=== PATIENT | female | born 1935 | race Caucasian/White ===

== ENCOUNTER 2017-01-23 19:54 | Inpatient (IN) ==
[2017-01-23 20:25] LABS: Basophils % 0.5 % (0.0-0.8); Eosinophils # 0.3 10*3/uL (0.0-0.87); Eosinophils % 3.5 % (0.00-10.9); Hematocrit 36.7 VOL% (35.7-47.0); Hemoglobin 12.8 GM/DL (12.0-16.0); Immature Granulocytes % 0.1 %; Immature Granulocytes Absolute 0.01 #; Lymphocytes % 33.7 % (21.3-54.2); Mean Corpuscular HGB Conc 34.9 GM/DL (32-36); Mean Corpuscular Hemoglobin 31 PG (27-34); Mean Corpuscular Volume 87.6 FL (87-102); Mean Platelet Volume 9.9 FL (9.6-12.0); Monocytes # 0.9 10*3/uL (0.11-0.8); Monocytes % 10.6 % (1.7-12.7); Neutrophils # 4.5 10*3/uL (1.4-7.4); Neutrophils % 51.6 % (38.7-73.9); Platelet Count 255 T/CUMM (130-400); Red Blood Count 4.19 MC/CUMM (3.8-5.5); Red Cell Distribution Width 13.1 % (9.3-17.3); White Blood Count 8.8 T/CUMM (4-12)
--- NOTE | 2017-01-23 20:37 | XRay Report ---
XR chest 2V Indication: Chest pain. Chest 2 views: No comparison. Heart size is normal. Aorta slightly tortuous. Mediastinal contours unremarkable. Right hemidiaphragm is elevated. Lungs are clear. Pleural spaces are clear. Impression: No acute cardiopulmonary disease. PROCEDURE INTERPRETED AT [facility] DEPARTMENT OF RADIOLOGY Final Report Signed by: Mauro Leach M.D.
[2017-01-23 20:40] LABS: Blood Urea Nitrogen 15 MG/DL (7-18); Calcium 9.1 MG/DL (8.5-10.1); Glucose 106 MG/DL (74-106); Magnesium 2.1 MG/DL (1.8-2.4); Osmolality,Calculated 270.1 MOS/KG (273-304); Potassium 4.2 MMOL/L (3.5-5.1); Sodium 135 MMOL/L (136-145); Troponin I Only < 0.015 NG/ML (0.00-0.045)
--- NOTE | 2017-01-23 20:56 | Emergency Department Note ---
Kwabena Torres Hilary, am scribing for, and in the presence of, Mauricio Ponce MD 20:11 . Rosario Torres Hans, MD, personally performed the services described in this documentation, ascribed by Raven Yuan in my presence, and it is both accurate and complete . Arrival - Arrival Chief Complaint: Chest Pain Stated Complaint: Chest pain Limitations: No Limitations Source: Patient, RN Notes Reviewed - History of Present Illness HPI Narrative: Pt is a 72 y/o female brought into the ED via EMS with c/o chest which onset at 1430 today. She states that she had this about a week ago but not this bad. Pt confirms chest pain, SOB, left leg swelling intermittently and acid reflux but denies abdominal pain. No other complaints or problems stated in the ED. She was given 2 Nitros and 2 baby aspirins. Onset (ago): hour(s) Consistency: now resolved Allergies/Adverse Reactions: Allergies Allergy/AdvReac Type Severity Reaction Status Date / Time piroxicam [From Feldene] Allergy Unknown/Unable Verified 01/23/17 20:07 to obtain Home Medications: Home Medications Medication Instructions Recorded Confirmed Type Atorvastatin [Lipitor] 20 mg PO DAILY 01/23/17 01/23/17 History Omeprazole [Prilosec] 20 mg PO DAILY 01/23/17 01/23/17 History Oxybutynin Chloride 5 mg PO BID 01/23/17 01/23/17 History Review of System - Review of System 12 point system: reviewed and no additional remarkable complaints except as stated - Review of System Constitutional: Absent: fever Respiratory: Present: respiratory distress Cardiovascular: Present: chest pain Gastrointestinal: Absent: abdominal pain Exam Vital Signs: Vital Signs Temperature 98.0 F 01/23/17 19:55 Pulse Rate 68 01/23/17 20:46 Respiratory Rate 20 01/23/17 20:46 Blood Pressure 161/77 01/23/17 20:46 O2 Sat by Pulse Oximetry 95 01/23/17 20:46 - General General appearance: alert, in no apparent distress - Head Head exam: Present: atraumatic, normocephalic - Eye Eye exam: Present: normal appearance, PERRL, EOMI - ENT ENT exam: Present: mucous membranes moist, TM's normal bilaterally. Absent: mucous membranes dry - Neck Neck exam: Present: full ROM, trachea midline. Absent: tenderness - Chest Chest inspection: Present: symmetric chest wall rise. Absent: tenderness - Respiratory Respiratory exam: Present: normal lung sounds bilaterally. Absent: respiratory distress - Cardiovascular Cardiovascular exam: Present: regular rate, normal rhythm, normal heart sounds. Absent: murmur, rubs, gallop - Abdominal Exam Abdominal exam: Present: soft, normal bowel sounds. Absent: distention, tenderness - Extremities Exam Extremities exam: Present: full ROM. Absent: tenderness - Back Exam Back exam: Present: full ROM. Absent: tenderness - Neurological Exam Neurological exam: Present: alert, oriented X3, CN II-XII intact. Absent: motor sensory deficit - Psychiatric Psychiatric exam: Present: normal affect, normal mood - Skin Skin exam: Present: warm, dry, intact, normal color. Absent: rash Course Course Narrative: This patient was evaluated in the ER with lab work chest x-ray and EKG. She had some minimal ST depression in her septal leads but her troponin was negative and there is no ST elevation. Her chest pain resolved with nitroglycerin in route. She is admitted to Dr. Abreu under the care of Dr. Perez overnight to telemetry for cardiology evaluation in the morning and trending enzymes and EKGs. Results - Labs CBC & BMP: 01/23/17 20:07 01/23/17 20:07 Lab Results: I have reviewed the patients labs Labs: Laboratory Tests 01/23/17 20:07 WBC 8.8 RBC 4.19 Hgb 12.8 Hct 36.7 [place] # (Auto) 0.9 H - Diagnostic Findings Procedure: Chest x-ray: report reviewed by me (No acute cardiopulmonary disease. ) Disposition Clinical Impression: Chest pain Case discussed with: patient Disposition: Still a Patient Condition: Stable Instructions: Chest Pain (ED) Time of Disposition: 20:56
[2017-01-23] MEDS ORDERED: ENOXAPARIN 80 MG/0.8 ML SYRINGE SUBCUT STA (21:01)
[2017-01-23] MEDS ORDERED: ENOXAPARIN 80 MG/0.8 ML SYRINGE SUBCUT ONE (21:08)
[2017-01-23] MEDS ORDERED: MAGNESIUM SULF RIDER 4 GM in PREMIX 1 EACH IV PRN (22:04)
[2017-01-23] MEDS ORDERED: MAGNESIUM SULF RIDER 2 GM in PREMIX 1 EACH IV PRN (22:04)
[2017-01-23] MEDS ORDERED: cloNIDine 0.1 MG TABLET PO ONE (22:33)
[2017-01-23 23:13] LABS: Troponin I Only < 0.015 NG/ML (0.00-0.045)
[2017-01-24] MEDS ORDERED: cloNIDine 0.1 MG TABLET PO ONE (00:06)
[2017-01-24 05:18] LABS: Basophils % 0.6 % (0.0-0.8); Eosinophils # 0.2 10*3/uL (0.0-0.87); Eosinophils % 2.3 % (0.00-10.9); Hematocrit 34.6 VOL% (35.7-47.0); Hemoglobin 11.7 GM/DL (12.0-16.0); Immature Granulocytes % 0.2 %; Immature Granulocytes Absolute 0.01 #; Lymphocytes # 1.5 10*3/uL (1.4-4.0); Lymphocytes % 22.7 % (21.3-54.2); Mean Corpuscular HGB Conc 33.8 GM/DL (32-36); Mean Corpuscular Hemoglobin 30 PG (27-34); Mean Platelet Volume 9.5 FL (9.6-12.0); Monocytes # 0.6 10*3/uL (0.11-0.8); Monocytes % 9.2 % (1.7-12.7); Neutrophils # 4.2 10*3/uL (1.4-7.4); Platelet Count 239 T/CUMM (130-400); Red Blood Count 3.93 MC/CUMM (3.8-5.5); Red Cell Distribution Width 13.1 % (9.3-17.3); White Blood Count 6.4 T/CUMM (4-12)
[2017-01-24 05:43] LABS: Calcium 8.4 MG/DL (8.5-10.1); Osmolality,Calculated 275.7 MOS/KG (273-304); Potassium 3.8 MMOL/L (3.5-5.1)
[2017-01-24 05:59] LABS: Troponin I Only 0.016 NG/ML (0.00-0.045)
--- NOTE | 2017-01-24 06:21 | EKG Report ---
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
--- NOTE | 2017-01-24 07:27 | EKG Report ---
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
--- NOTE | 2017-01-24 08:10 | EKG Report ---
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
--- NOTE | 2017-01-24 08:11 | Family Practice History&Phys ---
Assessment and Plan (1) Chest pain Status: Acute Assessment and plan: 01/24/2017: Patient's noted to have slight ST depression in the lateral precordial leads. With her history and response to nitroglycerin she certainly needs to see cardiology and I suspect needs a left heart catheterization. Current Visit: Yes History of Present Illness Chief complaint: Chest pain History of present illness: Ms. Hale is a 81 year old female Patient 81-year-old white female states she developed substernal chest pain around 630 yesterday evening. Patient states was a substernal tightness that radiated to her neck. She did have a little nausea and shortness of breath associated with this but no diaphoresis or pallor. Patient states he had a few episodes of similar pain but much less intense than that she experienced last night. Patient states she was given a nitroglycerin in route to the emergency room by ambulance personnel and she states this relieved her pain. She has never had any cardiac problems in the past. There is a family history of cardiac problems and particularly in a brother that of an NM. Patient states she is not having any discomfort at present. Home Medications Medication Instructions Recorded Confirmed Type Atorvastatin [Lipitor] 20 mg PO DAILY 01/23/17 01/23/17 History Omeprazole [Prilosec] 20 mg PO DAILY 01/23/17 01/23/17 History Oxybutynin Chloride 5 mg PO BID 01/23/17 01/23/17 History Allergies Allergy/AdvReac Type Severity Reaction Status Date / Time Amoxicillin Allergy Fatigued Verified 01/23/17 21:14 piroxicam [From Feldene] Allergy Unknown/Unable Verified 01/23/17 20:07 to obtain - Constitutional Constitutional: Absent: chills, fever(s), weakness - EENT Eyes: Absent: blurry vision, loss of vision Ears: Absent: decreased hearing, ear pain Nose, mouth and throat: Absent: hoarseness, sinus pressure, sore throat - Cardiovascular Cardiovascular: Present: chest pain at rest. Absent: orthopnea, palpitations, PND - Respiratory Respiratory: Absent: cough, dyspnea, wheezing - Gastrointestinal Gastrointestinal: Absent: abdominal pain, diarrhea, dyspepsia, dysphagia, nausea , vomiting - Genitourinary Genitourinary: Absent: dysuria, hematuria, urinary frequency, urinary hesitancy - Musculoskeletal Musculoskeletal: Absent: back pain, joint swelling - Neurological Neurological: Absent: confusion, focal weakness, numbness, paresthesias - Psychiatric Psychiatric: Absent: anxiety, confusion, depression - Endocrine Endocrine: Absent: fatigue, polydipsia, polyphagia - Hematologic/Lymphatic Hematologic/Lymphatic: Absent: easy bleeding, easy bruising Medical,Surgical,& Family Hx - Medical History Endocrine: History of: Dyslipidemia Gastrointestinal: History of: GERD - Surgical History Reproductive Surgeries: Surgical HX of;: Hysterectomy Additional Surgical History: Jaw surgery - Family History Family History: Reports;: Family Heart Disease (Patient's brother of coronary artery disease. Her father did have cor) - Social History Smoking Status: Never smoker Frequency of Alcohol Use: None Type of Drug Use: None Exam - Constitutional Vitals: Period Temp Pulse Resp BP Sys/Hunter Pulse Ox Last 24 Hr 97.3 F-98.7 F 63-82 16-23 130-197/65-94 95-97 Exam: General: Objective patient is a well-developed white female in no acute distress. She is able to give an excellent history. HEENT: Pupils equal and reactive to light. Patent nares and airway Neck: No meningismus, adenopathy, thyromegaly. There are no auscultated carotid bruits. Cardiovascular: Regular rhythm. No murmurs or gallops Chest: Clear to auscultation without rales rhonchi wheezes. Abdomen: Soft nontender to palpation No masses, rebound, guarding or tenderness. Neuro: Cranial nerves intact and DTRs and strength symmetric in all extremities. Dermatologic: No evidence of abnormal lesions or masses. Musculoskeletal: There is no joint swelling or tenderness or deformity. Extremities: There is no calf swelling or tenderness Results - Labs CBC & BMP: 01/24/17 05:08 01/24/17 05:08 Lab Results: I have reviewed the past 24 hour labs - EKG EKG results: sinus rhythm - Impressions Patient had slight ST depression in the lateral precordial leads.
[2017-01-24] MEDS ORDERED: OXYBUTYNIN 5 MG TABLET PO SCH (09:00)
[2017-01-24] MEDS ORDERED: ATORVASTATIN 20 MG TABLET PO SCH (09:00)
--- NOTE | 2017-01-24 09:40 | Cardiology Consult Note ---
<Jade Valle E - Last Filed: 01/24/17 09:31> Assessment and Plan - Time spent with patient Time spent with patient: Greater than 30 minutes (due to assessment,plan, and docuementation) (1) Shortness of breath Status: Acute Assessment and plan: See plan of care listed below. Current Visit: Yes (2) Chest pain Status: Acute Assessment and plan: See plan of care listed below. Current Visit: Yes (3) Dyslipidemia Status: Chronic Assessment and plan: See plan of care listed below. Current Visit: Yes (4) GERD (gastroesophageal reflux disease) Status: Chronic Assessment and plan: See plan of care listed below. Current Visit: Yes (5) Family history of coronary artery disease Status: Chronic Assessment and plan: See plan of care listed below. Current Visit: Yes (6) Elevated blood pressure reading Status: Acute Assessment and plan: See plan of care listed below. Current Visit: Yes History of Present Illness - Data of Consult Patient: new to practice Consult date: 01/24/17 Requesting Physician: Elise Ayala Primary care physician: Elise Ayala - Consult Narrative Reason for consult: SOB, chest pain History of present illness: SHAKE FEEDER: NONE PCP: DR. ELISE AYALA Ms. Hale is a 81 year old female with a history of dyslipidemia and gastroesophageal reflux disease. She denies a history of hypertension, diabetes, stroke, or bleeding disorders. She is a lifelong non-smoker. She has a significant family history of coronary artery disease including a brother who in his early 60s from an [facility], 2 other brothers still living, one of which had an [facility] at 69 years old and required CABG, third brother had an [facility] in his early 60s and required CABG. Her father also from [facility] in his early 60s. She has risk factors significant for: Age, dyslipidemia, sedentary lifestyle, family history of CAD. Ms. Hale presented to the emergency room yesterday evening with complaints of substernal chest discomfort. She reports a history of progressive shortness of breath for the past 2-3 months. She tells me last week she had an episode where she became short of breath and felt chest tightness. She reports she took some antacids at that time and thinks they helped a little bit. Last night she developed a midsternal chest discomfort with shortness of breath which persisted until she called 911. Upon EMS arrival, she was given sublingual nitroglycerin which completely relieved her pain within a few moments. She has had associated left neck and left jaw pain; she has attributed this to an old injury when she fell and broke her jaw approximately 18 years ago and had to have it wired shut. She also reports associated nausea. She reports that when she gets up in the morning and takes a shower and performs her morning routine of getting ready, she has to sit down and rest when she finishes because she is so fatigued. She denies any chest pain on exertion. Her discomfort is nonreproducible. On admission, her H&H is 11.7 and 34.6. Creatinine 0.6. Potassium 3.8. Magnesium 2.1. She has had 3 sets of negative cardiac biomarkers. EKG today suggests slight ST depression in the lateral leads although it does look as if she may have been moving around slightly. We will repeat this to further evaluate for changes. She did receive Lovenox 80 mg SC in the emergency room. She has a reported allergy to piroxicam which causes her to be fatigued. Patient does report she takes 325 aspirin daily without any difficulties. We will start her on baby aspirin daily and monitor. She has been in normal sinus rhythm with heart rates in the 60s. ASSESSMENT/PLAN: 1. SHORTNESS OF BREATH - Symptoms typical for angina with normal cardiac biomarkers. Borderline EKG. We will repeat her EKG and keep her n.p.o. until Dr. Corral evaluates her. We will await his further recommendations. 2. CHEST PAIN -symptoms typical for angina. Patient is currently pain-free. Will start patient on daily aspirin and monitor for adverse reaction. 3. DYSLIPIDEMIA - Continue lipid lowering agent. Lipid panel in AM. 4. GERD - Takes prilosec daily at home. 5. FAMILY HISTORY OF CAD - She has a significant family history of coronary artery disease including a brother who in his early 60s from an [facility], 2 other brothers still living, one of which had an VA at 69 years old and required CABG, third brother had an VA in his early 60s and required CABG. Her father also from [facility] in his early 60s. 6. ELEVATED BLOOD PRESSURE READING - Blood pressure has been elevated since admission with occasional normotensive readings. Patient reports taking pain medication couple of years ago for hypertension but states this was discontinued after having hypotension. She reports that now she will occasionally check her blood pressure at home and she is sometimes hypotensive. She states her blood pressure is occasionally around 99/69 at times. We will proceed cautiously with any medications that may affect her blood pressure and monitor her closely. Dr. Corral to follow with further plan and addendum. CC: Elise Ayala MD - Home Medications and Allergies Home Medications: Home Medications Medication Instructions Recorded Confirmed Type Atorvastatin [Lipitor] 20 mg PO DAILY 01/23/17 01/23/17 History Omeprazole [Prilosec] 20 mg PO DAILY 01/23/17 01/23/17 History Oxybutynin Chloride 5 mg PO BID 01/23/17 01/23/17 History Allergies/Adverse Reactions: Allergies Allergy/AdvReac Type Severity Reaction Status Date / Time Amoxicillin Allergy Fatigued Verified 01/23/17 21:14 piroxicam [From Feldene] AdvReac Mild Fatigued Verified 01/24/17 10:06 Review of systems: - Constitutional: Present: fatigue, As per HPI. Absent: anorexia, chills, daytime sleepiness, excessive sweating, fever(s), frequent falls, headache(s), increased appetite, lethargy, malaise, night sweats, stops breathing during sleep, weakness, weight gain, weight loss. - EENT Eyes: Present: As per HPI. Absent: blurry vision, diplopia, loss of vision Ears: Present: As per HPI. Absent: decreased hearing, ear discharge, ear pain Nose, mouth and throat: Present: As per HPI. Absent: dysphagia, epistaxis, headache(s), hoarseness, lip swelling, nasal congestion, neck mass, neck pain, sinus pressure, sore throat, throat swelling, tongue swelling, vertigo - Cardiovascular: Present: dyspnea, dyspnea on exertion, edema, chest pain at rest, lightheadedness, as per HPI. Absent: chest pain with activity, claudication, diaphoresis, radiating jaw, neck or arm pain, orthopnea, palpitations, PND - Respiratory: Present: as per HPI. Absent: dyspnea, dyspnea on exertion, cough , hemoptysis, wheezing, snoring, pain on inspiration - Gastrointestinal: Present: As per HPI. Absent: abdominal pain, bloating, change in bowel habits, constipation, diarrhea, heartburn, hematemesis, hematochezia, loose stools, melena, nausea, vomiting - Genitourinary: Present: As per HPI. Absent: difficulty urinating, dysuria, flank pain, hematuria, nocturia, urinary frequency, urinary incontinence - Musculoskeletal: Present: As per HPI. Absent: arthralgias, back pain, joint swelling, limited range of motion, muscle cramps, muscle weakness, myalgias - Neurological: Present: dizziness, As per HPI. Absent: abnormal gait, abnormal speech, behavioral changes, confusion, convulsions, disequilibrium, focal weakness, frequent falls, headache(s), memory loss, numbness, paresthesias , radicular pain, syncope, tremor(s) - Psychiatric: Present: As per HPI. Absent: anxiety, confusion, depression, panic attacks - Endocrine: Present: fatigue, As per HPI. Absent: cold intolerance, heat intolerance, polydipsia, polyphagia - Hematologic/Lymphatic: Present: As per HPI. Absent: easy bleeding, easy bruising, lymphadenopathy Medical,Surgical,& Family Hx - Medical History Cardio: No history of: CAD, [facility] Neurology: No history of: Cerebrovascular Accident, TIA Endocrine: History of: Dyslipidemia No history of: Diabetes Mellitus (IDDM), Diabetes Mellitus (NIDDM) Respiratory: No history of: COPD Gastrointestinal: History of: GERD Hematology: No history of: Blood Disorders - Surgical History Reproductive Surgeries: Surgical HX of;: Hysterectomy - Family History Family History: Reports;: Family Heart Disease (Patient's brother of coronary artery disease. Her father did have cor), Family Stroke - Social History Smoking Status: Never smoker Frequency of Alcohol Use: None Type of Drug Use: None Marital Status: Lives With:: Spouse Functional capacity: independent ambulation Physical Examination Vital Signs Temp Pulse Resp BP Pulse Ox 98.0 F 78 22 154/94 95 01/23/17 19:55 01/23/17 19:55 01/23/17 19:55 01/23/17 19:55 01/23/17 19:55 Other: General appearance: Pleasant and cooperative. Over weight, no acute distress. - Head Head exam: Present: normal inspection, normocephalic, atraumatic. Absent: hematoma, laceration - Eye Eye exam: Present: EOMI. Absent: conjunctival injection, nystagmus, periorbital swelling, scleral icterus, laceration to eyelids Pupils: Present: PERRL. Absent: constricted, dilated, fixed, irregular, unequal - ENT ENT exam: Present: normal exam, normal external ear exam - Neck Neck exam: Present: normal inspection. Absent: lymphadenopathy, meningismus, tenderness, thyromegaly - Respiratory Respiratory exam: Present: clear to auscultation bilaterally. Absent: accessory muscle use, chest wall tenderness - Cardiovascular Cardiovascular exam: Present: regular rate and rhythm. Absent: carotid bruit, gallop, JVD, rubs, murmur - GI/Abdominal GI/Abdominal exam: Present: normal bowel sounds, soft. Absent: distended, firm , guarding, hernia, mass, tenderness, rebound. - Extremities Exam Extremities exam: Present: normal inspection, normal capillary refill. Upper extremity pulses 2+. Lower extremity pulses 2+. Absent: calf tenderness, edema -Musculoskeletal Exam Musculoskeletal: Present: No Fluid Collection, No Pain, Normal Range of Motion - Back Exam Back exam: Present: normal inspection. Absent: muscle spasm, vertebral tenderness - Neurological Exam Neurological exam: Present: alert, oriented X3, grossly intact without resting or essential tremor - Psychiatric Psychiatric exam: Present: normal affect, normal mood - Skin Skin exam: Present: normal color, warm, dry, intact. Absent: cyanosis, diaphoretic, rash, urticaria Result/EKG - Labs CBC & BMP: 01/24/17 05:08 01/24/17 05:08 Lab Results: I have reviewed the past 24 hour labs Labs: Laboratory Results - last 24 hr 01/23/17 01/23/17 01/23/17 20:07 20:07 22:28 WBC 8.8 RBC 4.19 Hgb 12.8 Hct 36.7 MCV 87.6 MCH 31 MCHC 34.9 RDW 13.1 Plt Count 255 MPV 9.9 Neut % (Auto) 51.6 Lymph % (Auto) 33.7 Glascock % (Auto) 10.6 Eos % (Auto) 3.5 Baso % (Auto) 0.5 Neut # (Auto) 4.5 Lymph # (Auto) 3.0 [place] # (Auto) 0.9 H Eos # (Auto) 0.3 Baso # (Auto) 0.0 Immature Gran % 0.1 Nucleated RBC % 0.0 Immature Gran # 0.01 Nucleated RBCs # 0.00 Sodium 135 L Potassium 4.2 Chloride 103 Carbon Dioxide 22 Anion Gap 14.2 BUN 15 Creatinine 0.60 GFR Calculation 89 BUN/Creatinine Ratio 25.00 H Glucose 106 Calculated Osmolality 270.1 L Calcium 9.1 Magnesium 2.1 Total Creatine Kinase 86 58 D CK-MB (CK-2) < 1.0 < 1.0 Troponin I < 0.015 < 0.015 01/24/17 01/24/17 01/24/17 05:08 05:08 05:08 WBC 6.4 RBC 3.93 Hgb 11.7 L Hct 34.6 L MCV 88.0 MCH 30 MCHC 33.8 RDW 13.1 Plt Count 239 MPV 9.5 L Neut % (Auto) 65.0 Lymph % (Auto) 22.7 [place] % (Auto) 9.2 Eos % (Auto) 2.3 Baso % (Auto) 0.6 Neut # (Auto) 4.2 Lymph # (Auto) 1.5 [place] # (Auto) 0.6 Eos # (Auto) 0.2 Baso # (Auto) 0.0 Immature Gran % 0.2 Nucleated RBC % 0.0 Immature Gran # 0.01 Nucleated RBCs # 0.00 Sodium 138 Potassium 3.8 Chloride 104 Carbon Dioxide 27 Anion Gap 10.8 BUN 12 Creatinine 0.60 GFR Calculation 90 BUN/Creatinine Ratio 20.00 Glucose 112 H Calculated Osmolality 275.7 Calcium 8.4 L Magnesium Total Creatine Kinase 55 CK-MB (CK-2) 1.2 Troponin I 0.016 - EKG EKG results: interpreted by me, sinus rhythm (ST-T abnormality) Specialty Discharge - Follow Up or Referrals <Martha Corral - Last Filed: 01/24/17 11:48> Assessment and Plan (1) Unstable angina Status: Acute Assessment and plan: As per HPI recommended left heart catheterization. Discussed risk benefits and options with the patient and her family present she is willing to proceed she voiced understanding. Current Visit: Yes (2) History of hypertension Status: Acute Current Visit: Yes (3) Dyslipidemia Status: Chronic Assessment and plan: Will need more aggressive therapy Current Visit: Yes (4) GERD (gastroesophageal reflux disease) Status: Chronic Assessment and plan: I think this is likely anginal equivalent Current Visit: Yes (5) Family history of coronary artery disease Status: Chronic Current Visit: Yes History of Present Illness - Consult Narrative History of present illness: Ms. Hale is a 81 year old female with strong family history of coronary artery disease who has very typical unstable anginal symptoms. She has had nausea and dyspepsia now for several days and has been taking [id number] antacids without relief. Yesterday she had a bandlike squeezing in her chest that occurred at rest and subsequent came to the emergency room for evaluation. She has subtle ST segment changes on her EKG and normal troponins. She is admitted service and her primary care physician Dr. Elise Ayala. I saw and examined the patient discussed with Jeannine Valle and the patient's family. Discussed with the patient risks benefits and options recommended left heart catheterization selective coronary angiography and possible PCI. The patient is never had previous cardiac workup she saw Dr. Browne many years ago for what sounds like an ocular van after seeing Dr. Romano. They increase her aspirin dose and did not do any further workup. The patient listened all risk benefits and options and is willing to proceed with left heart catheterization. I discussed with Dr. East and he will perform left heart as soon as possible. CC: Elise Ayala MD Review of systems: Dyspepsia heartburn type symptoms tightness squeezing in her chest with radiation. And the above as input by Ms. Valle Medical,Surgical,& Family Hx - Medical History Cardio: History of: Hypertension (Previously on antihypertensives but discontinued due to hypotension), Valvular Heart Disease (Mitral valve prolapse with murmur) Musculoskeletal: History of: Musculoskeletal Problems (Osteoarthritis) - Surgical History Reproductive Surgeries: Surgical HX of;: Hysterectomy - Family History Family History: Reports;: Family Heart Disease, Family Stroke - Social History Smoking Status: Never smoker Frequency of Alcohol Use: None Type of Drug Use: None Marital Status: Lives With:: Spouse Functional capacity: independent ambulation Physical Examination Vital Signs Temp Pulse Resp BP Pulse Ox 98.0 F 78 22 154/94 95 01/23/17 19:55 01/23/17 19:55 01/23/17 19:55 01/23/17 19:55 01/23/17 19:55 General: Present: Appears Well Neck: Present: Midline Trachea Cardiac: Present: S1/S2, Other (2/6 late peaking murmur of mitral regurgitation. Her PMI appears to be not enlarged but may be slightly lateral to the mid clavicular line). Absent: S3, S4 Lungs: Present: Normal Exam Neuro: Present: Cranial Nerve 2-12 Intact, Motor Function Intact, Sensory Function Intact Abdomen: Present: Soft, Active Bowel Sounds Extremities: Present: Normal Gait, Other (Normal femoral and radial pulses). Absent: Edema Result/EKG - Labs CBC & BMP: 01/24/17 05:08 01/24/17 05:08 Labs: Laboratory Results - last 24 hr 01/23/17 01/23/17 01/23/17 20:07 20:07 22:28 WBC 8.8 RBC 4.19 Hgb 12.8 Hct 36.7 MCV 87.6 MCH 31 MCHC 34.9 RDW 13.1 Plt Count 255 MPV 9.9 Neut % (Auto) 51.6 Lymph % (Auto) 33.7 [place] % (Auto) 10.6 Eos % (Auto) 3.5 Baso % (Auto) 0.5 Neut # (Auto) 4.5 Lymph # (Auto) 3.0 [place] # (Auto) 0.9 H Eos # (Auto) 0.3 Baso # (Auto) 0.0 Immature Gran % 0.1 Nucleated RBC % 0.0 Immature Gran # 0.01 Nucleated RBCs # 0.00 Sodium 135 L Potassium 4.2 Chloride 103 Carbon Dioxide 22 Anion Gap 14.2 BUN 15 Creatinine 0.60 GFR Calculation 89 BUN/Creatinine Ratio 25.00 H Glucose 106 Calculated Osmolality 270.1 L Calcium 9.1 Magnesium 2.1 Total Creatine Kinase 86 58 D CK-MB (CK-2) < 1.0 < 1.0 Troponin I < 0.015 < 0.015 01/24/17 01/24/17 01/24/17 05:08 05:08 05:08 WBC 6.4 RBC 3.93 Hgb 11.7 L Hct 34.6 L MCV 88.0 MCH 30 MCHC 33.8 RDW 13.1 Plt Count 239 MPV 9.5 L Neut % (Auto) 65.0 Lymph % (Auto) 22.7 [place] % (Auto) 9.2 Eos % (Auto) 2.3 Baso % (Auto) 0.6 Neut # (Auto) 4.2 Lymph # (Auto) 1.5 [place] # (Auto) 0.6 Eos # (Auto) 0.2 Baso # (Auto) 0.0 Immature Gran % 0.2 Nucleated RBC % 0.0 Immature Gran # 0.01 Nucleated RBCs # 0.00 Sodium 138 Potassium 3.8 Chloride 104 Carbon Dioxide 27 Anion Gap 10.8 BUN 12 Creatinine 0.60 GFR Calculation 90 BUN/Creatinine Ratio 20.00 Glucose 112 H Calculated Osmolality 275.7 Calcium 8.4 L Magnesium Total Creatine Kinase 55 CK-MB (CK-2) 1.2 Troponin I 0.016 - EKG EKG results: interpreted by me (The patient has 2 ECGs she has high lateral and lateral ST depression. This is more prominent in the tracing yesterday. This suggests lateral ischemia)
[2017-01-24] MEDS ORDERED: ASPIRIN EC 81 MG TABLET PO SCH (10:30)
[2017-01-24] MEDS ORDERED: DIAZEPAM 5 MG TABLET PO ONE (11:40)
[2017-01-24] MEDS ORDERED: diphenhydrAMINE CAP 25 MG CAPSULE PO ONE (11:40)
--- NOTE | 2017-01-24 11:49 | History and Physical Update ---
Sedation H&P Update - History and Physical H&P was reviewed, the patient examined and there: are no changes in the patients condition since last H&P was completed. - Dictation Physical: refer to H&P completed by admitting physician - Physical Exam Mental Status: alert and oriented Heart: regular rate and rhythm (murmur of mitral regurgitation/ PMI slightly laterally displaced) Lung: clear to auscultation Abdomen: within normal limits Vitals: within normal limits - Sedation Plan for Sedation: moderate Patient Consent: Procedure disscussed with patient and patinet has consented., Risks and benefits were discussed with patient,including infection,, bleeding, injury to surrounding structures, seizure, temporary nerve, Patient understands and accepts potential risks/benefits and agrees to, proceed. ASA Class: II Airway Assessment: Class II: Soft palate, uvula, fauces visible
[2017-01-24] MEDS ORDERED: LIDOCAINE 1% 20 ML VIAL ONE (11:53)
[2017-01-24] MEDS ORDERED: HEPARIN/NACL 0.9% 2 UNITS/ML 1,000 ML IV ONE (11:53)
[2017-01-24] MEDS ORDERED: SODIUM CHLORIDE 0.45% 1,000 ML IV SCH (12:00)
[2017-01-24] MEDS ORDERED: NITROGLYCERIN DRIP 50 MG/250 ML BOTTLE IV ONE (12:14)
[2017-01-24] MEDS ORDERED: VERAPAMIL 5 MG/2 ML VIAL ONE (12:15)
[2017-01-24] MEDS ORDERED: MIDAZOLAM 2 MG/2 ML VIAL ONE (12:17)
--- NOTE | 2017-01-24 12:17 | EKG Report ---
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
[2017-01-24] MEDS ORDERED: ENOXAPARIN 60 MG/0.6 ML SYRINGE ONE (12:19)
[2017-01-24] MEDS ORDERED: HYDROmorphone 2 MG/1 ML VIAL ONE (12:19)
--- NOTE | 2017-01-24 12:54 | Cardiac Catheterization ---
Date of Procedure:: 01/24/17 Procedure: CLINICAL HISTORY: Please see the history and physical. The patient had chest pain symptoms concerning for angina, and abnormal EKG, and multiple cardiac risk factors. She is proceeding to cardiac catheterization for definitive coronary artery assessment possible revascularization. PROCEDURES PERFORMED: 1. Right radial percutaneous arteriotomy 2. Left heart catheterization 3. Resting hemodynamics 4. Left ventriculography. 5. Coronary arteriography 6. Hemoband placement DESCRIPTION OF PROCEDURE: After obtaining informed consent, the patient was taken to the dental lab technician, prepped and draped in the usual sterile manner. We accessed the right radial artery using modified Seldinger technique in the usual fashion. We placed a 6-Bulgarian slim sheath without difficulty. We then used a Tig catheter to engage the right coronary and left main coronary arteries to perform angiography in multiple orthogonal views. There were no problems or complications during the procedure. We then used an angled pigtail catheter to perform a left heart catheterization with left ventriculogram and pressure measurement in the usual fashion. After removing the catheter, we placed a HemoBand and removed the sheath without difficulty. There were no problems during the case. HEMODYNAMICS: Please see the accompanying data sheet. LVEDP approximately 0. CORONARIES: The left main coronary artery is a moderate to large caliber vessel which bifurcates in the left anterior descending left circumflex was coronary arteries. The left main coronary artery is angiographically free of significant obstructive disease The left circumflex coronary artery is a moderate to large caliber vessel which gives off a small first obtuse marginal branch 2 moderate-sized obtuse marginal branches and a moderate-sized posterior lateral branch. The left circumflex coronary artery is angiographically free of significant obstructive disease. The left anterior descending is a large-caliber vessel which gives off a couple of small diagonal branches proximally and a moderate to large diagonal branch in its mid segment. The left anterior descending coronary artery tapers to be quite small at the apex. There is no significant obstructive disease seen in this vessel. The right coronary artery is a large-caliber vessel which gives off the posterior descending artery and a posterolateral system. The right coronary artery is angiographically free of significant obstructive disease. LEFT VENTRICULOGRAPHY: Left ventriculogram shows left ventricular ejection fraction of approximately 60-65%. There is a small area in the anterolateral region which may be mildly hypokinetic. IMPRESSION: 1. No significant obstructive coronary artery disease is seen. 2. Normal left ventricular systolic function with questionable subtle wall motion abnormality as described above. 3. Normal left ventricular end-diastolic pressure. PLAN: I do not see any significant obstructive coronary artery disease at this time. She has preserved left ventricular systolic function. She will be transferred back to her room for recovery. Anesthesia: minimal conscious sedation Surgeon / Physician: Jong East Estimated blood loss: minimal Condition: stable Disposition: floor - Medications / Follow-up
--- NOTE | 2017-01-24 14:53 | EKG Report ---
Stationary ECG Study 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
[2017-01-24 15:29] LABS: Troponin I Only < 0.015 NG/ML (0.00-0.045)
--- NOTE | 2017-01-24 16:26 | Discharge Summary ---
Hospital Course - Hospital Course Hospital Course: Patient 81-year-old white female admitted to the emergency room with sudden onset of substernal chest pain. The pain was quite severe and associated with shortness of breath and mild nausea. Patient does have a strong family history of coronary artery disease and her initial EKG revealed some ST depression in the lateral precordial leads. Patient was felt to be at high risk for coronary artery disease and possible unstable angina. She was seen by cardiology and underwent left heart catheterization which showed normal coronary arteries. Patient is feeling much better and is anxious for discharge. They did a brachial approach for her left heart catheterization so it is acceptable for her to be discharged today. Patient will be follow-up myself in the office in 1 month's time. Diagnosis - Discharge Diagnosis (1) Chest pain Status: Acute Specialty Discharge - Follow Up or Referrals Discharge Plan - Discharge Data Disposition: Disch To Home/Self Care Condition at Discharge: Stable Discharge Diet: advance to your usual diet Activity: resume usual activities as tolerated Hygiene: no restrictions Weight Bearing at Discharge: full weight bearing Driving: no restrictions Contact your physician if you experience:: fever over 101 - Discharge Medications New Aspirin EC Tab 81 mg PO DAILY tablet Continue Omeprazole [Prilosec] 20 mg PO DAILY Oxybutynin Chloride 5 mg PO BID Atorvastatin [Lipitor] 20 mg PO DAILY - Follow Up or Referral Follow Up: Chintan Abreu MD [Physician] - 1 Month - Forms/Instructions Instructions: Chest Pain (ED) Exam - Constitutional Vitals: Period Temp Pulse Resp BP Sys/Hunter Pulse Ox Last 24 Hr 97.3 F-99.0 F 51-82 16-23 105-197/54-94 91-97 Exam: General: Objective patient is a well-developed white female in no acute distress. Patient states she is ready to go home. HEENT: Pupils equal and reactive to light. Patent nares and airway Neck: No meningismus, adenopathy, thyromegaly. There are no auscultated carotid bruits. Cardiovascular: Regular rhythm. No murmurs or gallops Chest: Clear to auscultation without rales rhonchi wheezes. Abdomen: Soft nontender to palpation No masses, rebound, guarding or tenderness. Neuro: Cranial nerves intact and DTRs and strength symmetric in all extremities. Dermatologic: No evidence of abnormal lesions or masses. Musculoskeletal: There is no joint swelling or tenderness or deformity. Extremities: There is no calf swelling or tenderness Discharge Results Procedures and tests throughout hospitalization: Pending Orders 01/24/17 11:43 CL heart Routine 01/25/17 04:00 BMP w/ Mg [Basic Metabolic Panel w/Mg] IN AM Comp Blood Count Auto Diff IN AM Free T4 (Free Thyroxine) IN AM Lipid Panel IN AM TSH [Thyroid Stimulating Hormone] IN AM 01/26/17 04:00 BMP w/ Mg [Basic Metabolic Panel w/Mg] IN AM Comp Blood Count Auto Diff IN AM 01/24/2017: Patient had left heart catheterization showed no evidence of coronary artery disease. Labs on day of discharge: Labs from last 24 hours 01/24/17 01/24/17 01/24/17 14:17 05:08 05:08 WBC RBC Hgb Hct MCV MCH MCHC RDW Plt Count MPV Neut % (Auto) Lymph % (Auto) [place] % (Auto) Eos % (Auto) Baso % (Auto) Neut # (Auto) Lymph # (Auto) [place] # (Auto) Eos # (Auto) Baso # (Auto) Immature Gran % Nucleated RBC % Immature Gran # Nucleated RBCs # Sodium 138 Potassium 3.8 Chloride 104 Carbon Dioxide 27 Anion Gap 10.8 BUN 12 Creatinine 0.60 GFR Calculation 90 BUN/Creatinine Ratio 20.00 Glucose 112 H Calculated Osmolality 275.7 Calcium 8.4 L Magnesium Total Creatine Kinase 84 D 55 CK-MB (CK-2) 1.4 1.2 Troponin I < 0.015 0.016 01/24/17 01/23/17 01/23/17 05:08 22:28 20:07 WBC 6.4 RBC 3.93 Hgb 11.7 L Hct 34.6 L MCV 88.0 MCH 30 MCHC 33.8 RDW 13.1 Plt Count 239 MPV 9.5 L Neut % (Auto) 65.0 Lymph % (Auto) 22.7 [place] % (Auto) 9.2 Eos % (Auto) 2.3 Baso % (Auto) 0.6 Neut # (Auto) 4.2 Lymph # (Auto) 1.5 [place] # (Auto) 0.6 Eos # (Auto) 0.2 Baso # (Auto) 0.0 Immature Gran % 0.2 Nucleated RBC % 0.0 Immature Gran # 0.01 Nucleated RBCs # 0.00 Sodium 135 L Potassium 4.2 Chloride 103 Carbon Dioxide 22 Anion Gap 14.2 BUN 15 Creatinine 0.60 GFR Calculation 89 BUN/Creatinine Ratio 25.00 H Glucose 106 Calculated Osmolality 270.1 L Calcium 9.1 Magnesium 2.1 Total Creatine Kinase 58 D 86 CK-MB (CK-2) < 1.0 < 1.0 Troponin I < 0.015 < 0.015 01/23/17 20:07 WBC 8.8 RBC 4.19 Hgb 12.8 Hct 36.7 MCV 87.6 MCH 31 MCHC 34.9 RDW 13.1 Plt Count 255 MPV 9.9 Neut % (Auto) 51.6 Lymph % (Auto) 33.7 [place] % (Auto) 10.6 Eos % (Auto) 3.5 Baso % (Auto) 0.5 Neut # (Auto) 4.5 Lymph # (Auto) 3.0 [place] # (Auto) 0.9 H Eos # (Auto) 0.3 Baso # (Auto) 0.0 Immature Gran % 0.1 Nucleated RBC % 0.0 Immature Gran # 0.01 Nucleated RBCs # 0.00 Sodium Potassium Chloride Carbon Dioxide Anion Gap BUN Creatinine GFR Calculation BUN/Creatinine Ratio Glucose Calculated Osmolality Calcium Magnesium Total Creatine Kinase CK-MB (CK-2) Troponin I DS: Provider Date of admission: 01/23/17 20:56 Primary care physician: . No PCP Attending physician on admission: Chintan Abreu MD Consults: 01/23/17 22:04 Consult to Physician [CONS] Routine Comment: Consulting Provider: Consult to Specialist Group: Cardiology When should Consulting Provider be notified: In am 01/24/17 08:13 Consult to Physician [CONS] Routine Comment: Consulting Provider: Cardiology - [facility] Discharging clinician: Chintan Abreu MD Expected date of discharge: 01/24/17
[2017-01-24 18:27] VITALS: BP 125/74
== END 2017-01-24 18:29 | disposition home or self-care (01) | DRG 287 ==
LOC: EDBD → EDUNIT# → N.ED 19:54 → N.EDINP 20:56 → N.TELEN 21:17
PROVIDERS: ADMIT Family Medicine; ATTEND Family Medicine
PROC: CLCCHCL (ICD-10-PCS; 2017-01-24 14:15)